=== PATIENT | female | born 1960 | race Asian ===

== ENCOUNTER 2021-05-03 11:44 | Day surgery (SDC) | payer MEDICAID ==
[~2021-05-03] VITALS: Ht 152.4 cm; Wt 45.4 kg
[~2021-05-03 11:44] MED LIST: MORPHINE 2 MG/ML INJ. SYRINGE ONE
[2021-05-03] MEDS ORDERED: MIDAZOLAM HCL 5 MG/5 ML VIAL ONE (12:37)
[2021-05-03] MEDS ORDERED: DIPHENHYDRAMINE INJ 50 MG/ML VIAL ONE (12:37)
[2021-05-03] MEDS ORDERED: MORPHINE 2 MG/ML INJ. SYRINGE IVP ONE (13:05)
[2021-05-03] MEDS ORDERED: MIDAZOLAM HCL 5 MG/5 ML VIAL IVP ONE (13:07)
[2021-05-03 15:34] VITALS: BP_SYST 143
== END 2021-05-03 14:05 | disposition home or self-care (01) ==
LOC: SDS 11:44
PROVIDERS: ATTEND Internal Medicine
DX: M50.13 Cervical disc disorder with radiculopathy, cervicothoracic region (principal); G56.01 Carpal tunnel syndrome, right upper limb; Z79.899 Other long term (current) drug therapy
CPT/HCPCS: 62321; J2250; J2270; 76000; J1200